=== PATIENT | male | born 1995 | race Two or more races ===

== ENCOUNTER 2025-01-12 12:29 | Emergency (ER) | payer OTHER, SELFPAY ==
[2025-01-12] VITALS (9 sets, daily range): BP systolic 111–136; BP diastolic 66–88; PULSE 59–68; BMI 20.6
[2025-01-12 12:58] LABS: Hematocrit 39.6 % (39.0-52.0); Hemoglobin 14.3 g/dL (13.0-18.0); Mean Corp Hgb Conc. 36.1 g/dL (33.0-37.0); Mean Corpuscular Volume 87.4 fL (80.0-94.0); Nucleated Red Blood Cells % 0 % (-); Platelet Count 275 10^3/uL (130-400); Red Cell Dist. Width 11.6 % (11.5-14.5)
[2025-01-12 13:26] LABS: ALT (SGPT) 26 U/L (0-50); AST (SGOT) 20 U/L (17-59); Albumin 5.0 g/dl (3.5-5.0); Alkaline Phosphatase 80 U/L (38-126); Blood Urea Nitrogen 14 mg/dl (9-20); Calcium 9.8 mg/dl (8.4-10.2); Carbon Dioxide 25 mmol/L (22-30); Chloride 104 mmol/L (98-107); Glucose 115 mg/dl (70-99); Lipase 46 U/L (23-300); Potassium 3.9 mmol/L (3.5-5.1); Sodium 140 mmol/L (135-145); Total Protein 7.8 g/dl (6.3-8.2); eGFR > 60.00
[2025-01-12] MEDS: PROTONIX IV 40 MG IV (15:47)
[2025-01-12] MEDS: NSS 1000 IV (15:50)
--- NOTE | 2025-01-12 16:00 | ED.GENMED ---
History of Present Illness
General
Chief Complaint: Abdominal Symptoms
Source: patient
Exam Limitations: none
Time Seen by Provider: 01/12/25 15:01
Nursing documentation reviewed up to this point in time: agreed with
History of Present Illness
History of Present Illness:
Patient presents to ED secondary to multiple episodes of nausea vomiting, after waking up this morning around 4 AM with sudden onset of dizziness. Dizziness described as room spinning, without any alleviating or exacerbate factors. Patient reports
having had similar symptoms 1 year ago when he was evaluated urgent care center. Patient was given Zofran and his symptoms resolved shortly afterwards. Patient's mother apparently has history of dizziness. Patient otherwise is healthy, without
any significant medical history. Patient does not take any medications daily. Denies recent illness. Denies recent change in diet. Denies recent change in weight. Denies sick contact. Denies recent travel. Denies headache. Denies blurred
vision. Denies difficulty with speech. Denies loss of sensation or weakness. Denies difficulty with ambulation. At the time of evaluation ED, patient states that dizziness has resolved, but feels really weak due to not having eaten anything all
day.
Review of Systems
Review of Systems
Allergies reviewed?: Yes
All Other Systems: ROS reviewed and negative except as documented in HPI and ROS
Constitutional: Reports no symptoms; Denies fever
Respiratory: Reports no symptoms
Cardiac: Reports no symptoms; Denies chest pain or palpitations
ABD/GI: Reports abdominal pain, nausea and vomiting; Denies diarrhea
Musculoskeletal: Reports no symptoms
Skin: Reports no symptoms
Neurological: Reports dizzy; Denies headache or weakness
Phy Exam
Physical Exam
Physical Exam:
Physical Exam
General: no apparent distress, not acutely ill. afebrile
Head: nc/at. eomi. perrla
Neck: supple. normal range of motion. no carotid bruit
Heart: s1/s2 regular rate and rhythm, no murmur.
Lungs: no acute respiratory distress. clear bilaterally
Abdomen: normal bowel sounds. not tender.
Neuro: alert and oriented x 3. no focal neurological deficits. normal speech. normal finger to nose testing. normal gait
Skin: no rash
Psychiatric: well kept. interactive and cooperative
Extremities: no edema. no calf tenderness.
Course
Orders/Labs/Results
Orders:
Orders
01/12/25 12:51
Complete Blood Count/With Diff Urgent
Comprehensive Metabolic Panel Urgent
Lipase Urgent
01/12/25 15:36
CT Head W/o Iv Contrast Urgent
Comment:
Reason For Exam: dizziness
Orthostatic VS- Treatment ONCE
01/12/25 15:37
Electrocardiogram (*1) Urgent
Reason for Study: Vertigo / Dizzy
EKG- Treatment ONCE
0.9% Sodium Chloride 1000 ml [Nss] 1,000 ml IV BOLUS
Pantoprazole [Protonix IV] 40 mg IV NOW STA
Abnormal Lab Results
01/12/25
12:51
RBC 4.53 L 10^6/uL
(4.70-6.10)
MCH 31.6 H pg
(27.0-31.0)
MPV 11.6 H fL
(7.4-10.4)
Absolute Neuts (auto) 8.7 H 10^3/uL
(1.4-6.5)
Neutrophils % 83.5 H %
(42.2-75.2)
Lymphocytes % 12.3 L %
(20.5-51.1)
Creatinine 0.6 L mg/dL
(0.7-1.3)
Glucose 115 H mg/dl
(70-99)
01/12/25 12:51
01/12/25 12:51
Vital Signs
Initial and Last Documented VS:
Initial Vital Signs
Temp Pulse Resp BP Pulse Ox
97.6 F 74 16 111/77 98
01/12/25 12:36 01/12/25 12:36 01/12/25 12:36 01/12/25 12:36 01/12/25 12:36
Last Documented Vital Signs
Temp Pulse Resp BP Pulse Ox
98.3 F 69 21 117/66 98
01/12/25 15:08 01/12/25 18:00 01/12/25 18:00 01/12/25 18:00 01/12/25 18:00
MDM/Problems Addressed
MDM/Problems Addressed:
Patient with an unremarkable workup in ED, including blood work and CT head. Patient otherwise remains afebrile, hemodynamically stable, and neurologically intact during observation. Patient without recurrent dizziness during observation. History
and exam consistent with likely nonspecific vertigo. Patient will be discharged in stable condition, with recommendation to follow-up with PCP upon returning home. Patient will be given prescription for meclizine and Zofran, to be used as needed.
*Pulse Oximetry
SaO2: 100
Oxygen Mode of Delivery: Room air
Patient hypoxic: no
*Critical Care Note
Total Time (30-74mins, 75-104mins- exclusive of procedures): Not Applicable
ED Attending Note
-
Portions of this chart may have been created with voice recognition software.� Occasional wrong word or��sound alike� substitutions may have occurred due to the inherent limitations of voice recognition software.
Discharge Plan
Departure
Patient Disposition: Home (Routine Discharge)
Date of Disposition: 01/12/25
Time of Disposition: 19:25
Patient with high blood pressure during this ER visit?: No
Condition: Good
Discharge Problem:
Dizziness
Instructions: Dizziness in adults - ED (DC)
Prescriptions:
New
ondansetron 4 mg Tablet,Disintegrating
4 mg PO TIDPRN PRN (Reason: nausea/vomiting) Qty: 12 0RF
meclizine 25 mg tablet
25 mg PO BID PRN (Reason: dizziness) Qty: 14 0RF
Referrals:
UNKNOWN - PT DOES,NOT KNOW [Family Provider]
Activity Restrictions/Additional Instructions:
As discussed, please follow-up with your primary care physician for continual evaluation and treatment.
Interventions
Interventions:
*Risk Screen - Suicide Last Done: 01/12/25 15:08
*General Assessment Last Done: 01/12/25 15:08
*Neglect/Abuse Screening Last Done: 01/12/25 15:08
*ED- Fall Risk Assessment Last Done: 01/12/25 15:08
*ED COVID-19 Vaccine History Last Done: 01/12/25 15:08
*ED Influenza Vaccine History Last Done: 01/12/25 15:08
*Nursing Disposition Last Done: 01/12/25 19:45
XC-Beihnv-Ycpflzrmkq Assessment Last Done: 01/12/25 15:08
Discharge Date and Time
Discharge Date/Time: 01/12/25 19:45
Print Language: MOLDOVAN
== END 2025-01-12 19:45 | disposition home or self-care (01) ==
LOC: EMR 12:29
PROVIDERS: Student in an Organized Health Care Education/Training Program; EMERGENCY PHYSICIAN Emergency Medicine
DX: R42 Dizziness and giddiness (principal)
CPT/HCPCS: 99284; 96374; 96361; 70450; 80053; 83690; 85025; 93005